=== PATIENT | female | born 1975 | race Caucasian/White ===

== ENCOUNTER 2023-11-22 08:11 | Outpatient (REF) | payer OTHER, SELFPAY ==
[2023-11-22 08:38] LABS: MANUAL DIFF FLAG NO
[2023-11-22 09:30] LABS: Basophils Percent Auto 0.4 % (0-2); Eosinophils Absolute Auto 0.2 X10*3/uL (0.0-0.4); Eosinophils Percent Auto 2.2 % (0-4); Hematocrit 37.5 % (37.0-47.0); Hemoglobin 11.6 g/dl (12.0-16.0); Imm Gran Abs Auto 0.04 X10*3/uL (0.00-0.03); Imm Gran Pct Auto 0.6 % (0.0-0.4); Lymphocytes Absolute Auto 1.8 X10*3/uL (1.2-4.9); Lymphocytes Percent Auto 26.4 % (20-40); Mean Corpuscular HGB Conc 30.9 g/dl (31.0-35.0); Mean Corpuscular Hemoglobin 25.6 pg (27.0-33.0); Mean Corpuscular Volume 82.6 fL (80.0-98.0); Mean Platelet Volume 8.9 fL (9.4-12.3); Monocytes Absolute Auto 0.4 X10*3/uL (0.1-1.2); Monocytes Percent Auto 6.6 % (2-11); Neutrophils Absolute Auto 4.3 x10*3/uL (2.0-8.3); Neutrophils Percent Auto 63.8 % (45-73); Platelet Count 282 X10*3/uL (160-400); Red Blood Count 4.54 X10*6/uL (4.20-5.50); Red Cell Distribution Width 14.1 % (11.0-16.0); White Blood Count 6.7 X10*3/uL (4.8-10.8)
[2023-11-22 09:55] LABS: Appearance Urine Clear; Color Urine Yellow; Glucose Urine UA Negative (Negative); Leukocyte Esterase Urine Negative (Negative); Nitrite Urine Negative (Negative); Urine Blood Negative (Negative); Urine Ketones Negative (Negative); Urine Protein Negative (Neg-Trace)
[2023-11-22 10:09] LABS: Alanine Aminotransferase 32 U/L (0-31); Alkaline Phosphatase 108 U/L (39-117); Anion Gap 10 (12-20); Aspartate Amino Transferase 18 U/L (5-31); Bilirubin Total 0.3 mg/dL (0.0-1.0); Blood Urea Nitrogen 14 mg/dL (9-16); C Reactive Protein 1.39 mg/dL (< or = 0.50); Calcium 9.1 mg/dL (8.4-10.2); Carbon Dioxide 27 mmol/L (22-29); Chloride 106 mmol/L (96-108); Cholesterol 179 mg/dL (<200); Estimated Glomerular Filt Rate > 60; Glucose Fasting 100 mg/dL (60-99); HDL Cholesterol 51 mg/dL (>40); LDL Cholesterol Calculated 112 mg/dL (<100); Magnesium 2.3 mg/dL (1.6-2.6); Potassium 4.3 mmol/L (3.3-5.1); Sodium 139 mmol/L (135-145); Total Protein 6.8 g/dL (6.5-8.0); Triglycerides 80 mg/dL (<150)
[2023-11-22 10:13] LABS: Estimated Average Glucose 120 mg/dL; Hemoglobin A1c % 5.8 % (<6.0)
[2023-11-22 10:21] LABS: Vitamin B12 403 pg/mL (200-900)
[2023-11-22 10:24] LABS: Free T4 (Free Thyroxine) 1.08 ng/dL (0.71-1.85); Vitamin D 25-OH Total 78.2 ng/mL (>30)
[2023-11-22 11:31] LABS: Erythrocyte Sedimentation Rate 30 MM/HR (0-20)
[2023-11-22 11:57] LABS: Rheumatoid Factor 21.1 IU/mL (<15.0)
[2023-11-23 08:49] LABS: Follicle Stimulating Hormone 24.5 mIU/mL; Lutenizing Hormone 13.5 mIU/mL
[2023-11-24 15:38] LABS: Anti Nuclear Antibody Screen NEGATIVE (NEGATIVE)
[2023-11-24 18:12] LABS: Lyme Abs Screen <0.90 index
[2023-11-24 20:04] LABS: Cyclic Citrullinated Peptide <16 UNITS
[2023-11-25 08:29] LABS: Antibody to SS-A Antigen <1.0 NEG AI (<1.0 NEG); Antibody to SS-B Antigen <1.0 NEG AI (<1.0 NEG)
== END 2023-11-22 08:12 | disposition home or self-care (01) ==
LOC: HO.LAB 08:11
PROVIDERS: PCP Nurse Practitioner Family; Visit Provider Psychiatry & Neurology Psychiatry
DX: Z13.6 Encounter for screening for cardiovascular disorders (principal); F43.10 Post-traumatic stress disorder, unspecified; F39 Unspecified mood [affective] disorder; M25.541 Pain in joints of right hand
CPT/HCPCS: 36415; 80053; 80061; 81003; 82306; 82607; 83001; 83002; 83036; 83735; 84439; 85025; 85652; 86038; 86140; 86200; 86235; 86431; 86617; 86618

== ENCOUNTER → 2023-11-26 13:15 | Outpatient (BNV) | payer OTHER, SELFPAY | PROVIDERS: Visit Provider Psychiatry & Neurology Psychiatry | DX: F33.1 Major depressive disorder, recurrent, moderate (principal); F41.1 Generalized anxiety disorder; F43.10 Post-traumatic stress disorder, unspecified; F84.9 Pervasive developmental disorder, unspecified | CPT/HCPCS: 99213; 99499 ==

== ENCOUNTER 2023-12-01 13:15 | Outpatient (RCR) | payer OTHER, SELFPAY ==
[2023-11-17 10:55] VITALS: BP 106/72; PULSE 76; TEMP 36.8
[2023-11-17 10:56] VITALS: BMI 48.7
--- NOTE | 2023-11-17 12:58 | PC.ADMIT ---
Patient is a 48 year old female who self referred to PHP d/t increased sxs of depression and anxiety. Reports heart palpitations secondary to severe anxiety. Reports difficulty concentrating and focusing. Reports job stresses and reports traveling once a week for work however primarily works from home. Stated she has taken a leave of absence from work since October 15, 2023 d/t her symptoms. 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 Patient is alert and oriented x4. Calm and cooperative. Presents with depressed mood and anxious affect. Denied SI, No HI. I gave her a copy of her safety plan if needed and I reviewed this with her. She reports taking her medications as prescribed. Medications reconciled with patient and patient's pharmacy.
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
--- NOTE | 2023-11-20 15:15 | HO.PHP ---
Client's case has been opened and reviewed in treatment team.
--- NOTE | 2023-11-21 23:35 | P.PNPSP_ITS ---
Subjective Subjective Date of Service: 11/21/23 Reason For Visit: anxiety,depression Interim History: Doing a lot better yesterday and today Patient discusses a number of medical issues and concerns that have been active. She has a hsitory of fibromylagia, reports fatigue and myalgia, muscle tenderness. She also describes other symptoms including dry mouth, swallowing, dry eyes, as well as migrating joint pains, and currently shows me swelling in her right thumb joint. Says this occasionally happenes and then will spontaneously resolve. She also complains of some flu-like symptoms and night sweats that occured a few days ago and often come and go. She endorses weight loss recently since 11/04 from 307 lbs to 286 lbs today. Medication Compliance: Yes Side effects from medications: No Attending Groups: Yes Review of Systems Acute medical concerns: No Mental Status Exam Mental Status Exam Narrative: Alert, oriented, in no acute distress. Calm, cooperative, engaged. Mood depressed, affect constricted. Speech normal. Thought process linear, coherent. Thought content related to stressors, transient hopelessness, denies SI or HI. No paranoia or delusional content elicited. No evidence of psychosis. Insight and judgment - fair but adequate. Diagnostics Vital Signs (24Hr): BMI result Body Mass Index 48.7 Assessment & Plan Assessment & Plan (1) MDD (major depressive disorder), recurrent episode, moderate: Status: Acute Code(s): F33.1 - Major depressive disorder, recurrent, moderate (2) BRENDEN (generalized anxiety disorder): Status: Acute Code(s): F41.1 - Generalized anxiety disorder (3) PTSD (post-traumatic stress disorder): Status: Acute Code(s): F43.10 - Post-traumatic stress disorder, unspecified (4) Pervasive developmental disorder: Status: Acute Code(s): F84.9 - Pervasive developmental disorder, unspecified Plan start risperidone 0.25 mg qhs may start risperidone 0.125 - 0.25 mg qAM start metforming 250 mg BID to mitigate weight gain continue bupsirone 10 mg TID continue fluoxetine 40 mg qd continue other regular medications: Zyrtec, fluticasone, labetolol, olmesartan, oxybutynin lab order given for routine lab work, including inflammatory markers, GUERLINE, RA for acute on chronic joint pain (s,k,a), nodule/subq swelling in R 1st IP, no malar rash, other generalized rash or fever, recent unintended weight loss antiLa and Ro Abs given keratoconjunctivitis hx continue to monitor Certification I certify that partial hospital treatment is medically necessary due to the symptoms and problems resulting from the patient's mental illness and the failure to treat the patient at the partial hospital level of care would likely result in the patient requiring inpatient psychiatric care which could not be p revented at a less intensive level of care. Total time managing care of this patient today ____ minutes. Discharge Plan Discharge Attending provider: Mariah Salcedo Medications: New memantine 7 mg capsule,sprinkle,ER 24hr 7 mg PO .QHS 30 Days Qty: 30 0RF naltrexone 1.5 mg capsule 1.5 mg PO DAILY 30 Days Qty: 30 0RF Continued fluoxetine 40 mg capsule 40 mg PO DAILY labetalol 200 mg tablet 200 mg PO BID oxybutynin chloride 10 mg tablet extended release 24hr 10 mg PO DAILY omeprazole 40 mg capsule,delayed release(DR/EC) 40 mg PO DAILY buspirone 10 mg tablet 10 mg PO TID fluticasone propionate [Flonase Allergy Relief] 50 mcg/actuation [place],Suspension 2 spray INTRANASAL DAILY Rx Instructions: administer into each nostril olmesartan 5 mg tablet 5 mg PO DAILY Zyrtec 10 mg Capsule 10 mg PO DAILY metformin 500 mg tablet 250 mg PO BID Qty: 30 0RF risperidone 0.25 mg tablet 0.125 - 0.25 mg PO BID Qty: 60 0RF Stand Alone Forms: Patient Portal Discharge page Patient Education: Depression (DC) Print Language: [place]ian
--- NOTE | 2023-11-25 14:47 | PC.NURSE ---
Reviewed Jeannie's lab results with Dr Salcedo, and copy of the results put in her box including ESR 30, ALT 32, CRP 1.39, Rheum Factor 21.1, HGB 11.6, MHC 25.6, MCHC 30.9, MPV 8.9, IM gran PCT auto 0.6, IMGran ABS Auto 0.04.
--- NOTE | 2023-11-25 22:08 | HO.PHPPROGNO ---
Subjective Subjective Date of Service: 11/25/23 Reason For Visit: anxiety,depression Interim History: Patient seen for follow-up given recent med changes, also reviewed recent lab results, notable for elevated inflammatory markers, but otherwise non-specific findings: high CRP and Sed rate, +RF but -CCP, also -GUERLINE, -SSA/-SSB (Sjogrens); only other findings including very mild anemia, and marginally elevated ALT, borderline H/normal Alk Phos. +early perimenopausal. Briefly discussed low dose naltrexone (LDN), will see if [facility] pharmacy/insurance will fill LDN 1.5 mg qd #30 to target chronic, inflammation (usually medication requires order to be sent to compounding pharmacy, however formulation option for 1.5 mg caps available in EMR) She continues with same complaints and presentation although feels a little more hopeful. She has a lot of anxiety about going back to work, especially in context of interpersonal and socializing stressors. Thus far she is tolerating risperidone. Denies any adverse effects. Hoping to target some of the internal agitation, anxiety, cognitive distortions and social discomfort including often feeling sensorially overstimulanted. Had a productive weekend. Denies any SI. Medication Compliance: Yes Side effects from medications: No Attending Groups: Yes Review of Systems Acute medical concerns: No Mental Status Exam Mental Status Exam Narrative: Alert, oriented, in no acute distress. Calm, cooperative, engaged. No psychomotor agitation or neurovegetative retardation. Eye contact maintained. Mood anxious, affect variable, mood congruent. Speech normal. Thought process linear, coherent. Thought content related to stressors, denies any helplessness, hopelessness or SI.? No aggressive ideation or HI. No paranoia or delusional content elicited. No evidence of psychosis. Insight and judgment fair but adequate. Diagnostics Vital Signs (24Hr): BMI result Body Mass Index 48.7 Assessment & Plan Assessment & Plan (1) MDD (major depressive disorder), recurrent episode, moderate: Status: Acute Code(s): F33.1 - Major depressive disorder, recurrent, moderate (2) BRENDEN (generalized anxiety disorder): Status: Acute Code(s): F41.1 - Generalized anxiety disorder (3) PTSD (post-traumatic stress disorder): Status: Acute Code(s): F43.10 - Post-traumatic stress disorder, unspecified (4) Pervasive developmental disorder: Status: Acute Code(s): F84.9 - Pervasive developmental disorder, unspecified Plan start memantine ER 7 mg qhs risperidone at 0.125 mg AM and 0.25 mg PM - will gradually titrate to 0.25 mg in AM (or split 0.125/0.125 in AM and lunch) and 0.5 mg at bedtime may consider guanfacine ER 1 mg qd, will recheck VS this week continue fluoxetine 40 mg qam continue metformin 250 mg qhs continue other regular medications reviewed ASRS questionnaire completed by patient reviewed recent lab results, notable for elevated CRP and Sed rate, +RF, -SSA/SSB (Sjogrens) continue to monitor Patient educated on: diagnosis, medication risk/benefits and medical condition Informed Consent: understands Reason for contiued partial hosp. stay Substantial Risk for: inability to function, rapid decompensation and med/psych decompensation Certification I certify that partial hospital treatment is medically necessary due to the symptoms and problems resulting from the patient's mental illness and the failure to treat the patient at the partial hospital level of care would likely result in the patient requiring inpatient psychiatric care which could not be prevented at a less intensive level of care. Total time managing care of this patient today __30__ minutes. Discharge Plan Discharge Attending provider: Mariah Salcedo Medications: New metformin 500 mg tablet 250 mg PO BID Qty: 30 0RF risperidone 0.25 mg tablet 0.125 - 0.25 mg PO BID Qty: 30 0RF memantine 7 mg capsule,sprinkle,ER 24hr 7 mg PO .QHS 30 Days Qty: 30 0RF naltrexone 1.5 mg capsule 1.5 mg PO DAILY 30 Days Qty: 30 0RF Continued fluoxetine 40 mg capsule 40 mg PO DAILY labetalol 200 mg tablet 200 mg PO BID oxybutynin chloride 10 mg tablet extended release 24hr 10 mg PO DAILY omeprazole 40 mg capsule,delayed release(DR/EC) 40 mg PO DAILY buspirone 10 mg tablet 10 mg PO TID fluticasone propionate [Flonase Allergy Relief] 50 mcg/actuation [place],Suspension 2 spray INTRANASAL DAILY Rx Instructions: administer into each nostril olmesartan 5 mg tablet 5 mg PO DAILY Zyrtec 10 mg Capsule 10 mg PO DAILY Stand Alone Forms: Patient Portal Discharge page Print Language: [place] Citizen
== END 2023-12-01 23:59 | disposition home or self-care (01) ==
LOC: HO.PHPA 13:15
PROVIDERS: Visit Provider Psychiatry & Neurology Psychiatry
DX: F33.1 Major depressive disorder, recurrent, moderate (principal); F41.1 Generalized anxiety disorder; F43.10 Post-traumatic stress disorder, unspecified; F84.9 Pervasive developmental disorder, unspecified; Z79.899 Other long term (current) drug therapy
CPT/HCPCS: 90791; 90853